=== PATIENT | female | born 1975 | race American Indian/Alaskan Native ===

== ENCOUNTER 2016-12-27 11:54 | Emergency (ER) | payer MEDICAID ==
[2016-12-27 11:55] VITALS: BMI 42.5
[2016-12-27 12:00] VITALS: TEMP 97.5; O2SAT 100
--- NOTE | 2016-12-27 12:54 | C.PDOC ---
History Of Present Illness 41 yr old female presents to the ER requesting psych and med refill. In contrast to triage note, patient states her last dose was 5 days ago. Reports of hearing voices, telling her to kill her self. Patient is observed sleeping in ED but easily arousable for exam. Patient denies chest pain, SOB, nausea, vomiting, suicidal or homicidal ideation. Time Seen by Provider: 12/27/16 12:07 Chief Complaint (Nursing): Med Refill History Per: Patient History/Exam Limitations: no limitations Onset/Duration Of Symptoms: Days (5) Past Medical History Reviewed: Historical Data, Nursing Documentation, Vital Signs Vital Signs: Last Vital Signs Temp 97.5 F L 12/27/16 11:56 Pulse 88 12/27/16 11:56 Resp 18 12/27/16 11:56 BP 153/96 H 12/27/16 11:56 Pulse Ox 100 12/27/16 12:56 - Medical History PMH: Anemia, Anxiety, Asthma, Bipolar Disorder, Depression, Hyperlipidemia, Paranoia, Schizophrenia, Seizures (pt denies) Surgical History: No Surg Hx - [facility] Procedures GROUP PSYCHOTHERAPY (08/26/16) INDIVID PSYCHOTHERAP NEC (09/16/14) INDIVIDUAL PSYCHOTHERAPY, SUPPORTIVE (09/28/16) OTHER GROUP THERAPY (02/15/14) PSYCHIAT DRUG THERAP NEC (09/16/14) Family History: States: No Known Family Hx - Social History Hx Tobacco Use: Yes Hx Alcohol Use: Yes Hx Substance Use: Yes - Immunization History Hx Tetanus Toxoid Vaccination: Yes Hx Influenza Vaccination: Yes Hx Pneumococcal Vaccination: Yes Review Of Systems Except As Marked, All Systems Reviewed And Found Negative. Cardiovascular: Negative for: Chest Pain Respiratory: Negative for: Shortness of Breath Gastrointestinal: Negative for: Nausea, Vomiting Psych: Positive for: Other (No homicidial ideation; hears voices, chronic). Negative for: Suicidal ideation Physical Exam - Physical Exam Appears: Non-toxic, No Acute Distress Skin: Warm, Dry, No Rash Head: Atraumatic, Normacephalic Cardiovascular: Rhythm Regular, No Murmur Respiratory: Normal Breath Sounds, No Rales, No Rhonchi Gastrointestinal/Abdominal: Soft, No Tenderness Neurological/Psych: Oriented x3, Normal Speech, Normal Cognition ED Course And Treatment O2 Sat by Pulse Oximetry: 100 Progress Note: Crisis was notified regarding the patient. Medical Decision Making Medical Decision Making: pt seen by crisis team. pt at baseline status, will d/c with information for [facility] where she can follow up tomorrow. Disposition Counseled Patient/Family Regarding: Diagnosis, Need For Followup - Disposition Disposition: HOME/ ROUTINE Disposition Time: 16:26 Condition: GOOD Additional Instructions: Follow up in [facility] tomorrow - you were given an informatin sheet with address and phone number. Return to ER for any worsening symptoms. Instructions: Schizophrenia (ED) Forms: General Discharge Instructions - Clinical Impression Clinical Impression: Schizophrenia - PA / CRIB TENDER / Resident Statement MD/DO has reviewed & agrees with the documentation as recorded. - Scribe Statement The provider has reviewed the documentation as recorded by the Scribe Ann Arita All medical record entries made by the Scribe were at my direction and personally dictated by me. I have reviewed the chart and agree that the record accurately reflects my personal performance of the history, physical exam, medical decision making, and the department course for this patient. I have also personally directed, reviewed, and agree with the discharge instructions and disposition.
[2016-12-27 16:40] VITALS: BP 140/85; PULSE 74; RESP 20
== END 2016-12-27 16:40 | disposition home or self-care (01) ==
LOC: C.ER 11:54
DX: F20.9 Schizophrenia, unspecified (principal)

== ENCOUNTER 2017-12-25 03:56 | Emergency (ER) | payer MEDICAID ==
[2017-12-25 03:56] VITALS: BMI 42.5
--- NOTE | 2017-12-25 04:39 | C.PDOC ---
History Of Present Illness 42 year old female with PMHx of schizophrenia and auditory hallucinations presents to the ED for evaluation of hallucinations. Patient denies SI/HI, SOB, CP, trauma, injury, fall. Time Seen by Provider: 12/25/17 04:19 Chief Complaint (Nursing): Psychiatric Evaluation History Per: Patient History/Exam Limitations: clinical condition Onset/Duration Of Symptoms: Days Current Symptoms Are (Timing): Still Present Suicide/Self Injury Attempted (Context): None Modifying Factor(s): None Severity: None Associated Symptoms: Paranoia. denies: Depression, Suicidal Thoughts, Suicidal Plan Recent travel outside of the [place]: No Additional History Per: Patient, EMS Past Medical History Reviewed: Historical Data, Nursing Documentation, Vital Signs Vital Signs: Last Vital Signs Temp 98 F 12/25/17 04:36 Pulse 84 12/25/17 04:36 Resp 18 12/25/17 04:36 BP 136/85 12/25/17 04:36 Pulse Ox 97 12/25/17 04:36 - Medical History PMH: Anemia, Anxiety, Asthma, Bipolar Disorder, Depression, Hyperlipidemia, Paranoia, Schizophrenia, Seizures (pt denies) Denies: Diabetes, Hepatitis, HIV, HTN, Chronic Kidney Disease, Sexually Transmitted Disease Surgical History: No Surg Hx - [facility] Procedures GROUP PSYCHOTHERAPY (08/26/16) INDIVID PSYCHOTHERAP NEC (09/16/14) INDIVIDUAL PSYCHOTHERAPY, SUPPORTIVE (09/28/16) OTHER GROUP THERAPY (02/15/14) PSYCHIAT DRUG THERAP NEC (09/16/14) Family History: States: Unknown Family Hx - Social History Hx Tobacco Use: Yes Hx Alcohol Use: Yes Hx Substance Use: Yes - Immunization History Hx Tetanus Toxoid Vaccination: Yes Hx Influenza Vaccination: Yes Hx Pneumococcal Vaccination: Yes Review Of Systems Constitutional: Negative for: Fever, Chills Cardiovascular: Negative for: Chest Pain Respiratory: Negative for: Shortness of Breath Gastrointestinal: Negative for: Abdominal Pain Skin: Negative for: Rash Psych: Negative for: Depression, Suicidal ideation Physical Exam - Physical Exam Appears: Non-toxic, No Acute Distress, Unkempt, Other (malodorous) Skin: Normal Color, Warm, Dry Head: Atraumatic, Normacephalic Eye(s): bilateral: Normal Inspection Nose: No Discharge Oral Mucosa: Moist Neck: Normal ROM, Supple Chest: Symmetrical Cardiovascular: Rhythm Regular, No Murmur Respiratory: Normal Breath Sounds, No Rales, No Rhonchi, No Wheezing Gastrointestinal/Abdominal: Soft, No Tenderness, No Guarding, No Rebound Extremity: Normal ROM, No Tenderness, No Swelling Neurological/Psych: Oriented x3, Normal Motor, Normal Sensation Gait: Steady ED Course And Treatment Pulse Ox Interpretation: Normal Progress Note: On re-exam, the patient reports improvement of symptoms. Lungs are CTA, heart is RRR, abdomen is soft, non-tender and the patient is tolerating PO. Ambulatory in the ED with steady gait. Follow up with the medical doctor within 1-2 days. Return if worsened Medical Decision Making Medical Decision Making: Patient reports that she is homeless and wants a place to sleep. Disposition - Disposition Referrals: [facility] [Outside] Disposition: HOME/ ROUTINE Disposition Time: 05:58 Condition: GOOD Additional Instructions: Follow up with the medical doctor within 1-2 days. Return if worsened Instructions: Schizophrenia Forms: Begun (Serbian) - Clinical Impression Clinical Impression: Homelessness, Schizophrenia - PA / RIBBON WEAVER / Resident Statement MD/DO has reviewed & agrees with the documentation as recorded. - Scribe Statement The provider has reviewed the documentation as recorded by the Scribe Quinton Villafuerte All medical record entries made by the Scribe were at my direction and personally dictated by me. I have reviewed the chart and agree that the record accurately reflects my personal performance of the history, physical exam, medical decision making, and the department course for this patient. I have also personally directed, reviewed, and agree with the discharge instructions and disposition.
[2017-12-25 04:40] VITALS: RESP 18
[2017-12-25 06:13] VITALS: BP 131/79; PULSE 79; TEMP 98.1; O2SAT 98
== END 2017-12-25 06:14 | disposition home or self-care (01) ==
LOC: C.ER 03:56 → SUPCPDRO 03:56 → C.ER 06:14
DX: F20.9 Schizophrenia, unspecified (principal); Z59.0 Homelessness

== ENCOUNTER 2018-12-10 21:56 | Emergency (ER) | payer MEDICAID ==
[2018-12-10 21:57] VITALS: BMI 42.5
[2018-12-10 22:55] LABS: BASO # 0.1 K/uL (0.0-0.2); BASO % 1.3 % (0.0-2.0); EOS # 0.1 K/uL (0.0-0.7); EOS % 1.8 % (0.0-4.0); LYMPH # 1.4 K/uL (1.0-4.3); LYMPH % 20.8 % (20.0-40.0); MEAN CELL VOLUME 93.3 fL (81.0-99.0); MEAN CORPUSCULAR HEMOGLOBIN 30.8 pg (27.0-31.0); MEAN PLATELET VOLUME 7.3 fL (7.2-11.7); MONO # 0.6 K/uL (0.0-0.8); MONO % 9.2 % (0.0-10.0); NEUT # 4.6 K/uL (1.8-7.0); NEUT % 66.9 % (50.0-75.0); RBC 3.92 Mil/uL (3.80-5.20); RED CELL DISTRIBUTION WIDTH 14.5 % (11.5-14.5); WHITE BLOOD COUNT 6.9 K/uL (4.8-10.8)
[2018-12-10 23:03] LABS: ALB/GLOB RATIO 1.3 (1.0-2.1); ALBUMIN 4.1 g/dL (3.5-5.0); ALT/SGPT 15 U/L (9-52); AST/SGOT 25 U/L (14-36); BLOOD UREA NITROGEN 13 mg/dL (7-17); CALCIUM 9.6 mg/dl (8.6-10.4); GFR NON-AFRICAN AMERICAN > 60
--- NOTE | 2018-12-10 23:05 | C.PDOC ---
History Of Present Illness 43 year old female is brought to the ED by EMS from [facility]. Patient reports she is hearing voices that are telling her "a variety of things". Patient non compliant with her medications for bipolar and schizophrenia. Patient currently c/o feet pain. Patient denies SI/HI, other medical complaints. Patient requesting to talk to a slab worker. Time Seen by Provider: 12/10/18 22:28 Chief Complaint (Nursing): Psychiatric Evaluation History Per: Patient, EMS History/Exam Limitations: no limitations Onset/Duration Of Symptoms: Days Current Symptoms Are (Timing): Still Present Suicide/Self Injury Attempted (Context): None Associated Symptoms: Paranoia. denies: Depression, Suicidal Thoughts, Suicidal Plan Recent travel outside of the [place]: No Additional History Per: Patient, EMS Past Medical History Reviewed: Historical Data, Nursing Documentation, Vital Signs Vital Signs: Last Vital Signs Temp 97.4 F L 12/10/18 22:08 Pulse 74 12/10/18 22:08 Resp 20 12/10/18 22:08 BP 136/85 12/10/18 22:08 Pulse Ox 96 12/10/18 22:08 - Medical History PMH: Anemia, Anxiety, Asthma, Bipolar Disorder, Depression, Hyperlipidemia, Paranoia, Schizophrenia, Seizures (pt denies) Denies: Diabetes, Hepatitis, HIV, HTN, Chronic Kidney Disease, Sexually Transmitted Disease Surgical History: No Surg Hx - [facility] Procedures GROUP PSYCHOTHERAPY (08/26/16) INDIVID PSYCHOTHERAP NEC (09/16/14) INDIVIDUAL PSYCHOTHERAPY, SUPPORTIVE (09/28/16) OTHER GROUP THERAPY (02/15/14) PSYCHIAT DRUG THERAP NEC (09/16/14) Family History: States: Unknown Family Hx - Social History Hx Tobacco Use: Yes Hx Alcohol Use: Yes Hx Substance Use: Yes - Immunization History Hx Tetanus Toxoid Vaccination: Yes Hx Influenza Vaccination: Yes Hx Pneumococcal Vaccination: Yes Review Of Systems Constitutional: Negative for: Fever, Chills Cardiovascular: Negative for: Chest Pain Respiratory: Negative for: Shortness of Breath Gastrointestinal: Negative for: Nausea, Vomiting, Abdominal Pain Skin: Negative for: Rash Neurological: Negative for: Weakness, Numbness Psych: Positive for: Psychosis. Negative for: Depression, Suicidal ideation Physical Exam - Physical Exam Appears: Non-toxic, No Acute Distress, Unkempt Skin: Normal Color, Warm, Dry Head: Atraumatic, Normacephalic Eye(s): bilateral: Normal Inspection Neck: Normal ROM, Supple Chest: Symmetrical Cardiovascular: Rhythm Regular Respiratory: Normal Breath Sounds, No Rales, No Rhonchi, No Wheezing Extremity: Normal ROM, No Tenderness Neurological/Psych: Oriented x3, Normal Speech, Normal Cognition Gait: Steady ED Course And Treatment - Laboratory Results Result Diagrams: 12/10/18 22:47 12/10/18 22:47 Lab Results: Total Bilirubin 0.5 mg/dL (0.2-1.3) 12/10/18 22:47 AST 25 U/L (14-36) 12/10/18 22:47 ALT 15 U/L (9-52) 12/10/18 22:47 Alkaline Phosphatase 109 U/L (38-126) 12/10/18 22:47 Total Protein 7.4 g/dL (6.3-8.3) 12/10/18 22:47 Albumin 4.1 g/dL (3.5-5.0) 12/10/18 22:47 Globulin 3.3 gm/dL (2.2-3.9) 12/10/18 22:47 Albumin/Globulin Ratio 1.3 (1.0-2.1) 12/10/18 22:47 Lab Interpretation: No Acute Changes O2 Sat by Pulse Oximetry: 96 (ON RA) Pulse Ox Interpretation: Normal Progress Note: Patient treated with Haldol and Ativan IM in ED. Patient is medically cleared for crisis evaluation. Medical Decision Making Medical Decision Making: Plan: * Labs * UA * crisis eval * Ativan 2 mg IM * Haldol 5 mg IM Disposition - Disposition Disposition Time: 23:58 Condition: STABLE Forms: [facility] (Serbian) - Clinical Impression Clinical Impression: Manic bipolar I disorder, Hallucination, Schizophrenia - Scribe Statement The provider has reviewed the documentation as recorded by the Scribe Quinton Villafuerte All medical record entries made by the Scribe were at my direction and personally dictated by me. I have reviewed the chart and agree that the record accurately reflects my personal performance of the history, physical exam, medical decision making, and the department course for this patient. I have also personally directed, reviewed, and agree with the discharge instructions and disposition. Physician Patient Turnover Patient Signed Over To: Patrick Gracia Handoff Comments: pending crisis evaluation.
[2018-12-10 23:07] LABS: SQUAMOUS EPITHIAL 4 /hpf (0-5); URINE BACTERIA RARE (<OCC); URINE BILIRUBIN NEGATIVE (NEGATIVE); URINE BLOOD NEGATIVE (NEGATIVE); URINE CLARITY Hazy (Clear); URINE COLOR Yellow (YELLOW); URINE GLUCOSE (UA) NORMAL (Normal); URINE LEUKOCYTE ESTERASE NEG Leu/uL (Negative); URINE PROTEIN NEGATIVE (NEGATIVE); URINE UROBILINOGEN NORMAL mg/dL (0.2-1.0)
[2018-12-10 23:23] LABS: BARBITURATES, UR NEGATIVE (NEGATIVE); BENZODIAZEPINES, UR NEGATIVE (NEGATIVE); OPIATES, UR NEGATIVE (NEGATIVE); PHENCYCLIDINE, UR NEGATIVE (NEGATIVE)
[2018-12-11 06:49] VITALS: O2SAT 99
[2018-12-11 11:21] VITALS: BP 156/90; PULSE 81; RESP 18; TEMP 97.7
== END 2018-12-11 12:01 | disposition home or self-care (01) ==
LOC: C.ER 21:56
DX: F20.9 Schizophrenia, unspecified (principal); R44.3 Hallucinations, unspecified; F31.9 Bipolar disorder, unspecified; E78.5 Hyperlipidemia, unspecified; Z72.0 Tobacco use
CPT/HCPCS: 80053; 80320; 80324; 80345; 80346; 80349; 80353; 80358; 80361; 81001; 83735; 83992; 84100; 85025; 96372; 99285; J1630; J2060